=== PATIENT | female | born 1950 | race Caucasian/White ===

== ENCOUNTER 2020-01-29 07:40 | Outpatient (REF) | payer MEDICARE, SELFPAY | END 2020-01-29 07:41 | disposition home or self-care (01) | LOC: HO.WFDLDS 07:40 | PROVIDERS: PCP Internal Medicine; Visit Provider Internal Medicine | DX: Z20.828 Contact with and (suspected) exposure to other viral communicable diseases (principal) | CPT/HCPCS: 36415; 87635 ==

== ENCOUNTER 2025-04-19 14:54 | Outpatient (REF) | payer MEDICARE, SELFPAY ==
--- OUTSIDE RECORDS SUMMARY | 2025-04-19 14:58 | XMS_ITS | Encounter Summary ---
Author Organization [facility] Address [address] [facility] [address] [place] [address] Phone Care Team Providers Care Male Model Name Role Phone Sayra Whaley MD Primary Care Provi christ Tami Felipe MD Primary Care Provider [phone]- [phone] Encounter Details Date Type Department Care Team (Late st Contact Info) Description 03/28/2017 Ancillary Orders Virtual Department [address] [place] [address] Sayra Whaley MD [address] [place] [address] [email or web address] Social History Tobacco Use Types Packs/Day Years Used Date Smoking Tobacco: Never Assessed Comments Unknown Sex and Gender Information Value Date Recorded Sex Assigned at Not on file Legal Sex Female 10:03 PM EDT Gender Identity Not on file Sexual Orientation Not on file documented as of this encounter Plan of Treatment Upcoming Encounters Date Type Department Care Team (Late Contact Info) Description 03/01/2025 Procedure Pass [facility], Mammography- [facility] [address] [place] [address] 06/14/2025 1:00 PM EST Office Visit [facility] [address] [place] [address] 3rd Floor, [address] [place] [address] Dedrick Ornelas MD 22 [facility], [address] [address] 11/15/2025 2:45 PM EDT Appointment [facility], [facility]- [facility] [address] [place] [address] Tami Felipe MD [address] [place] [address] [email or web address] documented as of this encounter Results * BI MAMMOGRAM SCREENING WITH TOMOSYNTHESIS WITH CAD (BILATERAL) (05/05/2017 10:17 AM EST) Anatomical Region Laterality Modality Breast Left, Breast Right, Breast Bilateral Bila teral Mammography 05/05/2017 12:4 8 PM EST Impressions 05/05/2017 12:51 PM EST No mammographic change indicative of malignancy. Routine screening is recommended. BI-RADS CATEGORY: 2 - Benign finding. DENSITY: There are scattered fibroglandular densities. POS - [email or web address] Narrative 05/05/2017 12:51 PM EST Bilateral full-field digital screening mammography is obtained and read in conjunction with computer-aided detection. Tomosynthesis as well as 2-D C view imaging of both breasts in two planes also obtained. Comparison made to multiple prior, most recent 03/04/2016, and most remote 08/31/2010. No dominant mass, suspicious microcalcification, architectural distortion, focal skin thickening or worrisome asymmetry is detected. Vascular calcification noted, especially on the left. Small amount also suggested on the right. What may be a few milk of calcium microcysts also suggested on the right. Procedure Note Timothy Dick MD - 05/05/2017 Bilateral full-field digital screening mammography is obtained and read inconjunction with computer-aided detection. Tomosynthesis as well as 2-D Cview imaging of both breasts in two planes also obtained. Comparison madeto multiple prior, most recent 03/04/2016, and most remote 08/31/2010. No dominant mass, suspicious microcalcification, architectural distortion,focal skin thickening or worrisome asymmetry is detected. Vascularcalcification noted, especially on the left. Small amount also suggestedon the right. What may be a few milk of calcium microcysts also suggestedon the right. IMPRESSION: No mammographic change indicative of malignancy. Routine screening isrecommended. BI-RADS CATEGORY: 2 - Benign finding. DENSITY: There are scattered fibroglandular densities. POS - [email or web address] Sayra Whaley MD IMG MG EXAMS Fin al Result documented in this encounter Visit Diagnoses Diagnosis Breast screening Breast screening, unspecified Breast screening Breast screening, unspecified documented in this encounter Care Teams Male Model Relationship Specialty Start Date End Date Sayra Whaley MD [email or web address] PCP - General Internal Medicine 03/28/17 Tami Felipe MD [address] [place] [address] [email or web address] PCP - General Internal Medicine 03/01/22 documented as of this encounter Additional Source Comments The information contained in this document represents components of the legal health record. It is not the complete legal health record.[facility]
--- OUTSIDE RECORDS SUMMARY | 2025-04-19 14:58 | XMS_ITS | Encounter Summary ---
Author Organization [facility] Address [address] [address] Phone Care Team Providers Care Client Project Coordinator Name Role Phone Tami Felipe MD Primary Care Provider [phone]- [phone] Encounter Details Date Type Department Care Team (Late st Contact Info) Description 07/29/2022 Procedure Pass [facility] Admitting Dept Virtual Department [address] [place] [phone] Social History Tobacco Use Types Packs/Day Years Used Date Smoking Tobacco: Never Smokeless Tobacco: Never Alcohol Use Standard Drinks/Week Comments Yes 5 (1 standard drink = 0.6 oz pur e alcohol) Comments No Sex and Gender Information Value Date Recorded Sex Assigned at Not on file Legal Sex Female 10:03 PM EDT Gender Identity Not on file Sexual Orientation Not on file documented as of this encounter Plan of Treatment Upcoming Encounters Date Type Department Care Team (Late st Contact Info) Description 03/01/2025 Procedure Pass [address] [address] 06/14/2025 1:00 PM EST Office Visit [facility] [address] [place] [address] 3rd Floor, [address] [place] [address] Dedrick Ornelas MD [address] [place] [address] 11/15/2025 2:45 PM EDT Appointment [facility] 30 [place] [address] Tami Felipe MD [address] [place] [address] [email or web address] documented as of this encounter Visit Diagnoses Not on filedocumented in this encounter Care Teams Client Project Coordinator Relationship Specialty Start Date End Date Tami Felipe MD [address] [place] [address] [email or web address] PCP - General Internal Medicine 03/01/22 documented as of this encounter Additional Source Comments The information contained in this document represents components of the legal health record. It is not the complete legal health record.[facility]
--- OUTSIDE RECORDS SUMMARY | 2025-04-19 14:58 | XMS_ITS | Encounter Summary ---
Author Organization [facility] Address [address] [facility] [address] [place] [address] Phone Care Team Providers Care Linen Room Houseperson Name Role Phone Tami Felipe MD Primary Care Provider [phone]- [phone] Encounter Details Date Type Department Care Team (Late st Contact Info) Description 03/12/2022 Transcribe Orders Virtual Department [address] [place] [address] Tami Felipe MD [address] [place] [address] [email or web address] (Primary Dx); Discomfort Social History Tobacco Use Types Packs/Day Years Used Date Smoking Tobacco: Never Smokeless Tobacco: Never Alcohol Use Standard Drinks/Week Comments Yes 0 (1 standard drink = 0.6 oz pur e alcohol) Comments No Sex and Gender Information Value Date Recorded Sex Assigned at Not on file Legal Sex Female 10:03 PM EDT Gender Identity Not on file Sexual Orientation Not on file documented as of this encounter Plan of Treatment Upcoming Encounters Date Type Department Care Team (Late Contact Info) Description 03/01/2025 Procedure Pass [facility] [address] [place] [address] 06/14/2025 1:00 PM EST Office Visit [facility] [address] [place] [address] 3rd Floor, [address] [place] [address] Dedrick Ornelas MD 22 [facility], [address] [id number] 11/15/2025 2:45 PM EDT Appointment [facility], [facility] [address] [place] [address] Tami Felipe MD [address] [place] [address] [email or web address] documented as of this encounter Results * US PELVIS TRANSABDOMINAL PLUS TRANSVAGINAL (03/26/2022 1:43 PM EST) Anatomical Region Laterality Modality Pelvis, Uterus/Adnexa Ultrasound 03/29/2022 1:43 PM EST Impressions 03/29/2022 1:47 PM EST 1. Multiple uterine fibroids measuring up to 4.3 cm. 2. 2 cm simple right ovarian cyst. 3. Non-visualization of the left ovary. 4. Two simple left adnexal cysts. Narrative 03/29/2022 1:47 PM EST US PELVIS TRANSABDOMINAL PLUS TRANSVAGINAL TECHNIQUE: Pelvic Ultrasound Transabdominal performed for global imaging of the pelvis. Pelvic Ultrasound Transvaginal performed for detailed imaging of the endometrium and/or adnexa. COMPARISON: None FINDINGS: Uterus: Size: 7.4 x 3 x 3.5 cm. Myometrium: Heterogeneous with multiple fibroids, some of which are calcified, the largest measuring 4.3 cm Endometrium: Normal. Thickness: 2 mm. Right adnexa: Ovary: Measures 2.8 x 3 x 2.5 cm There is a 2 x 1.5 x 2 cm simple cyst Left adnexa: Ovary: Not well visualized. There are two adnexal simple cysts, one measuring 1.6 x 1.2 x 1.4 cm and one measuring 1.2 x 0.8 x 0.9 cm Free fluid: No significant free fluid. Procedure Note Chiqui Rivera MD - 03/29/2022 US PELVIS TRANSABDOMINAL PLUS TRANSVAGINAL TECHNIQUE: Pelvic Ultrasound Transabdominal performed for global imagingof the pelvis. Pelvic Ultrasound Transvaginal performed for detailedimaging of the endometrium and/or adnexa. COMPARISON: None FINDINGS: Uterus: Size: 7.4 x 3 x 3.5 cm. Myometrium: Heterogeneous with multiple fibroids, some of which arecalcified, the largest measuring 4.3 cm Endometrium: Normal. Thickness: 2 mm. Right adnexa: Ovary: Measures 2.8 x 3 x 2.5 cm There is a 2 x 1.5 x 2 cm simple cyst Left adnexa: Ovary: Not well visualized. There are two adnexal simple cysts, one measuring 1.6 x 1.2 x 1.4 cm andone measuring 1.2 x 0.8 x 0.9 cm Free fluid: No significant free fluid. IMPRESSION: 1. Multiple uterine fibroids measuring up to 4.3 cm. 2. 2 cm simple right ovarian cyst. 3. Non-visualization of the left ovary. 4. Two simple left adnexal cysts. us Tami Felipe MD IM US PELVIS Final Resul t documented in this encounter Visit Diagnoses Diagnosis Bloating- Primary Flatulence, eructation, and gas pain Discomfort Bloating Flatulence, eructation, and gas pain Discomfort documented in this encounter Care Teams Linen Room Houseperson Relationship Specialty Start Date End Date Tami Felipe MD [address] [place] [address] PCP - General Internal Medicine 03/01/22 documented as of this encounter Additional Source Comments The information contained in this document represents components of the legal health record. It is not the complete legal health record.[facility]
--- OUTSIDE RECORDS SUMMARY | 2025-04-19 14:58 | XMS_ITS | Encounter Summary ---
Author Organization [facility] Address [address] [facility] [address] [place] [address] Phone Care Team Providers Care Tassel Clipper Name Role Phone Sayra Whaley MD Primary Care Provi christ Tami Felipe MD Primary Care Provider [phone]- [phone] Encounter Details Date Type Department Care Team (Late st Contact Info) Description 04/07/2017 Transcribe Orders [address] [address] Sayra Whaley MD [address] [place], [place] [phone] [email or web address] Osteopedion (Primary Dx) Social History Tobacco Use Types Packs/Day Years [...] st Contact Info) Description 03/01/2025 Procedure Pass [facility] 30 [place] [address] 06/14/2025 1:00 PM EST Office Visit [facility] [address] [place] [address] 3rd Floor, [address] [place] [address] Dedrick Ornelas MD 22 [facility] [address] [place] [address] 11/15/2025 2:45 PM EDT Appointment [facility], [address] [address] Tami Felipe MD [address] [place] [phone] [email or web address] documented as of this encounter Procedures Procedure Name Priority Date/Time Associated Diagnosis Comments URINALYSIS WITH SEDIMENT Routine 04/07/2017 7:44 AM EST Osteopedion COMPREHENSIVE METABOLIC PANEL (CMP) Routine 04/07/2017 7:44 AM EST Osteopedion 25-OH VITAMIN D Routine 04/07/2017 7:44 AM EST Osteopedion HEMOGLOBIN A1C Routine 04/07/2017 7:44 AM EST Osteopedion LIPID PANEL Routine 04/07/2017 7:44 AM EST Osteopedion documented in this encounter Results * (ABNORMAL) 25-OH vitamin D (04/07/2017 7:44 AM EST) 25 OH VIT D (TOTAL) 28(L) 30 - 1,000 ng/mL [facility] Blood 04/07/2017 7:44 AM EST 04/07/2017 7:52 AM EST us Sayra Whaley MD LAB BLOOD BKR ORDER BETI Final Result [address] [address] * (ABNORMAL) Urinalysis with sediment (04/07/2017 7:44 AM EST) WBC 0-4(A) NONE SEEN /hpf [facility] RBC 0-2(A) NONE SEEN /hpf [facility] URINE EPITHELIAL 0-4(A) NONE SEEN [facility] MUCUS Trace(A) NONE SEEN /hpf [facility] BACTERIA NONE SEEN NONE SEEN [facility] COLOR STRAW(A) Yellow [facility] CLARITY Clear [facility] GLUCOSE Negative Negative [facility] BILI Negative Negative [facility] KETONES Negative Negative [facility] SPECIFIC GRAVITY <1.005 1.005 - 1.030 [facility] BLOOD Negative Negative [facility] PH 6.0 5.0 - 8.0 [facility] Protein-UA Negative Negative [facility] NITRITE Negative Negative [facility] Leukocyte esterase, ur Trace(A) Negative [facility] Urine (Urine) 04/07/2017 7:4 4 AM EST 04/07/2017 7:51 AM EST Sayra Whaley MD LAB URINE ORDERABLE S Final Result Performing Organization Address [facility]/ZIP Co de Phone Number [address] [address] * Hemoglobin A1c (04/07/2017 7:44 AM EST) HEMOGLOBIN A1C 5.4 4.3 - 5.8 % [facility] Blood 04/07/2017 7:44 AM EST 04/07/2017 7:52 AM EST us Sayra Whaley MD LAB BLOOD BKR ORDER BETI Final Result Performing Organization Address City/[facility]/ZIP Co de Phone Number [address] [address] * (ABNORMAL) Comprehensive metabolic panel (04/07/2017 7:44 AM EST) SODIUM 140 133 - 146 mmol/L [facility] POTASSIUM 4.5 3.3 - 5.1 mmol/L [facility] CHLORIDE 99 96 - 108 mmol/L [facility] CO2 30 21 - 35 mmol/L [facility] BUN 20(H) 6 - 19 mg/dL [facility] CREATININE 0.60 0.5 - 1.5 mg/dL [facility] GLUCOSE 113(H) 70 - 99 mg/dL [facility] ALBUMIN 4.4 3.9 - 4.8 g/dL [facility] TOTAL PROTEIN 7.1 6.5 - 8.0 g/dL [facility] CALCIUM 9.5 8.4 - 10.3 mg/dL [facility] ALKALINE PHOSPHATASE 76 39 - 117 U/L [facility] TOTAL BILIRUBIN 0.7 0 - 1.2 mg/dL [facility] AST 21 0 - 37 U/L [facility] ALT 20 0 - 40 U/L [facility] GLOBULIN 2.7 1 - 4.8 g/dL [facility] EGFR >60 >60 mL/min/1.7 3m2 [facility] Comment:Abnormal if <60. If patient is -Peruvian, multiply the result by 1.21. ANION GAP 16 10 - 20 mmol/L [facility] Blood 04/07/2017 7:44 AM EST 04/07/2017 7:52 AM EST us Sayra Whaley MD LAB BLOOD BKR ORDER BETI Final Result [facility] [address] [place], [place] [id number] * (ABNORMAL) Lipid panel (04/07/2017 7:44 AM EST) HDL 63 mg/dL [facility] Comment: Interpretation: Risk Level Females Decreased >55mg/dL Average 50-55 mg/dL Increased <50 mg/dL CHOLESTEROL 247(H) 0 - 240 mg/dL [facility] TRIGLYCERIDES 126 30 - 160 mg/dL [facility] LDL 159(H) 50 - 129 mg/dL [facility] Comment: LDL levels in terms of risk for coronary heart disease: <100 mg/dL: Optimal 100-129 mg/dL: Near or above optimal 130-159 mg/dL: Borderline high 160-189 mg/dL: High >190 mg/dL: Very High CARDIAC RISK RATIO 3.9 3.3 - 4.4 C [facility] Blood 04/07/2017 7:44 AM EST 04/07/2017 7:52 AM EST us Sayra Whaley MD LAB BLOOD BKR ORDER BETI Final Result [address] [address] documented in this encounter Visit Diagnoses Diagnosis Osteopedion- Primary Unspecified condition originating in the period documented in this encounter Care Teams Tassel Clipper Relationship Specialty Start Date End Date Sayra Whaley MD [email or web address] PCP - General Internal Medicine 03/28/17 Tami Felipe MD [address] [place] [address] [email or web address] PCP - General Internal Medicine 03/01/22 documented as of this encounter Additional Source Comments The information contained in this document represents components of the legal health record. It is not the complete legal health record.[facility]
--- OUTSIDE RECORDS SUMMARY | 2025-04-19 14:58 | XMS_ITS | Clinical Summary ---
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 Active pravastatin (PRAVACHOL) 80 MG tablet Take 80 mg by mouth daily. Active ezetimibe (ZETIA) 10 mg tablet Take 10 mg by mouth daily. 04/29/2022 Active multivitamin-min erals-lutein (CENTRUM SILVER) Tab Take 1 tablet by mouth daily. Active turmeric/turmeri c ext/pepr ext (TURMERIC-TURMER IC EXT-PEPPER) 500-3 mg Cap Take by mouth. Active magnesium oxide 400 mg magnesium Cap Take by mouth. Active cholecalciferol (VITAMIN D3) 2,000 unit tablet Take 2,000 Units by mouth daily. Active aspirin 81 MG EC tablet Take 81 mg by mouth daily. Active metoprolol succinate (TOPROL-XL) 25 MG 24 hr tablet TAKE ONE TABLET BY MOUTH EVERY DAY 90 tablet 3 08/09/2024 Active Encounters Date Type Department Care Team Description 03/01/2025 Transcribe Orders Virtual Department [address] [place] [address] Mayda Felipe MD Breast screening (Primary Dx) 02/28/2025 Transcribe Orders Virtual Department [address] [place] [address] Mayda Felipe MD Breast screening (Primary Dx) from Last 3 Months Family History Medical History Relation Comments Breast cancer Neg Hx Social History Tobacco Use Types Packs/Day Years Used Date Smoking Tobacco: Never Smokeless Tobacco: Never Tobacco Cessation:Counseling Given: Not Answered Alcohol Use Standard Drinks/Week Comments Yes 5 (1 standard drink = 0.6 oz pur e alcohol) Education Answer Date Recorded Are you interested in more education? Not on ansley e 08/20/2022 Are you concerned about learning? Not on file 08/20/2022 No 08/20/2022 No 08/20/2022 Digital Access Answer Date Recorded No 09/20/2022 No 09/20/2022 Reliable internet access at home? Not on file 09/20/2022 Device with a working camera? Not on file Comments No Sex and Gender Information Value Date Recorded Sex Assigned at Not on file Legal Sex Female 10:03 PM EDT Gender Identity Not on file Sexual Orientation Not on file Last Filed Vital Signs Vital Sign Reading Time Taken Comments Blood Pressure 138/72 06/14/2024 1:07 PM EST Pulse 84 06/14/2024 1:07 PM EST Temperature 36.6 C (97.9 F) 07/29/2022 7:21 AM EDT Respiratory Rate 18 07/29/2022 8:29 AM EDT Oxygen Saturation 98% 06/14/2024 1:07 PM EST Inhaled Oxygen Concentration - - Weight 74.4 kg (164 lb) 06/14/2024 1:07 PM EST Height 167.6 cm (5' 6 ) 06/14/2024 1:07 PM EST Body Mass Index 26.47 06/14/2024 1:07 PM EST Plan of Treatment Upcoming Encounters Date Type Department Care Team (Late st Contact Info) Description 03/01/2025 Procedure Pass [facility], Mammography- [facility] [address] [place] [address] 06/14/2025 1:00 PM EST Office Visit [facility] [address] [place] [address] 3rd Floor, [address] [place] [address] Dedrick Ornelas MD [address] [facility], [address] [place], [place] [id number] 11/15/2025 2:45 PM EDT Appointment [facility], [address] [address] Mayda Felipe MD [address] [place] [phone] [email or web address] Health Maintenance Due Date Last Done Comments DEPRESSION SCREENING 1961 HEPATITIS C SCREENING 1967 COLOGUARD 1994 FIT TEST 1994 FOBT 1994 SIGMOIDOSCOPY 1994 VIRTUAL COLONOSCOPY 1994 INFLUENZA VACCINE (#1) 2024 , 02/04/2022, 01/19/2021 COVID-19 VACCINE ( season) 2024 07/30/2023, 01/28/2023, 01/26/2022, Additional history exists CREATININE LEVEL 04/01/2026 04/01/2025, 05/2023, 02/22/2024, Additional history exists LIPID PANEL 04/01/2026 04/01/2025, 05/26, 03/26/2024, Additional history exists POTASSIUM LEVEL 04/01/2026 04/01/2025, 05/2023, 02/22/2024, Additional history exists COLONOSCOPY 07/30/2027 07/29/2022 COLORECTAL CANCER SCREENING 07/30/2027 Adult Td,Tdap Booster 05/09/2029 05/09/2019 PNEUMOCOCCAL VACCINES (50+ years) Completed 04/08/2016, 03/11/2015 ZOSTER VACCINES Completed 04/29/2021, 11/28/2020 RSV VACCINE Completed 03/29/2023 SMOKING STATUS SCREENING (Once After 26 Yrs) Completed 06/14/2024 OSTEOPOROSIS SCREENING INITIAL (ONE-TIME) Completed 08/06/2024, 11/27/2020 HEPATITIS A VACCINES Aged Out No long er eligible based on patient's age to complete this topic HIB VACCINES Aged Out No longer eligi ble based on patient's age to complete this topic MENINGOCOCCAL VACCINES (ACWY) Aged Out No longer eligible based on patient's age to complete this topic MENINGOCOCCAL VACCINES (B) Aged Out N o longer eligible based on patient's age to complete this topic Medical Devices Not on file Procedures Procedure Name Priority Date/Time Associated Diagnosis Comments LIPID PANEL Routine 04/01/2025 10:00 AM EST Elevated glucose Osteoporosis, unspecified osteoporosis type, unspecified pathological fracture presence PE (physical exam), annual Hyperlipidemia, unspecified hyperlipidemia type Bone disease COMPREHENSIVE METABOLIC PANEL (CMP) Routine 04/01/2025 10:00 AM EST Elevated glucose Osteoporosis, unspecified osteoporosis type, unspecified pathological fracture presence PE (physical exam), annual Hyperlipidemia, unspecified hyperlipidemia type Bone disease CBC Routine 04/01/2025 10:00 AM EST Elevated glucose Osteoporosis, unspecified osteoporosis type, unspecified pathological fracture presence PE (physical exam), annual Hyperlipidemia, unspecified hyperlipidemia type Bone disease HEMOGLOBIN A1C Routine 04/01/2025 10:00 AM EST Elevated glucose Osteoporosis, unspecified osteoporosis type, unspecified pathological fracture presence PE (physical exam), annual Hyperlipidemia, unspecified hyperlipidemia type Bone disease 25-OH VITAMIN D Routine 04/01/2025 10:00 AM EST Elevated glucose Osteoporosis, unspecified osteoporosis type, unspecified pathological fracture presence PE (physical exam), annual Hyperlipidemia, unspecified hyperlipidemia type Bone disease BD DXA AXIAL (SPINE) WITH HIP Routine 08/06/2024 7:49 AM EDT Osteopenia, unspecified location ENDOSCOPY, COLON 07/29/2022 7:57 AM EDT from Last 3 Months or Most Recently Relevant to Health Maintenance Results * (ABNORMAL) Comprehensive Metabolic Panel (CMP) (04/01/2025 10:00 AM EST) Sodium 136 136 - 145 mmol/L 04/01/2025 5:07 PM [facility] Potassium 3.9 3.4 - 5.1 mmol/L 04/01/2025 5:07 PM [facility] Chloride 98 98 - 107 mmol/L 04/01/2025 5:07 PM [facility] CO2 28 20 - 31 mmol/L 04/01/2025 5:07 PM [facility] BUN 16 6 - 23 mg/dL 04/01/2025 5:07 PM [facility] Creatinine 0.50 0.50 - 1.00 mg/dL 04/01/2025 5:07 PM [facility] Glucose 118(H) 70 - 99 mg/dL 04/01/2025 5:07 PM [facility] Calcium 9.6 8.5 - 10.5 mg/dL 04/01/2025 5:07 PM [facility] AST 23 <33 U/L 04/01/2025 5:07 PM [facility] ALT 20 <34 U/L 04/01/2025 5:07 PM [facility] Alkaline Phosphatase 80 40 - 130 U/L 04/01/2025 5:07 PM [facility] Bilirubin, Total 0.9 0.0 - 1.2 mg/dL 04/01/2025 5:07 PM [facility] Total Protein 7.1 6.4 - 8.3 g/dL 04/01/2025 5:07 PM [facility] Albumin 4.8 3.5 - 5.2 g/dL 04/01/2025 5:07 PM [facility] Globulin 2.3 1.9 - 4.1 g/dL 04/01/2025 5:07 PM [facility] eGFR 98 >59 mL/min/1.7 3m2 04/01/2025 5:07 PM [facility] Comment:Estimated glomerular filtration rate calculated using the CKD-EPI refit equation. Anion Gap 10 3 - 17 mmol/L 04/01/2025 5:07 PM [facility] Blood (Blood) Venipuncture / Unknown 04/01/2025 10:00 AM EST 04/01/2025 10:00 AM EST us Mayda Felipe MD LAB BLOOD BKR ORDERABLES Fi nal Result [address] [address] * 25-OH Vitamin D (04/01/2025 10:00 AM EST) 25-OH Vitamin D, Total 46 20 - 50 ng/mL 04/01/2025 4:46 PM [facility] Comment: Severe deficiency: <10 ng/mL Mild to moderate deficiency: 10-19 ng/mL Optimum levels: 20-50 ng/mL Increased risk of hypercalciuria: 51-80 ng/mL Possible toxicity: >80 ng/mL Blood (Blood) Venipuncture / Unknown 04/01/2025 10:00 AM EST 04/01/2025 10:00 AM EST us Mayda Felipe MD LAB BLOOD BKR ORDERABLES Fi nal Result [address] [address] * CBC (04/01/2025 10:00 AM EST) WBC 5.17 4.00 - 11.00 K/uL 04/01/2025 5:03 PM [facility] RBC 4.76 4.00 - 5.20 M/uL 04/01/2025 5:03 PM [facility] Hemoglobin 14.5 12.0 - 16.0 g/dL 04/01/2025 5:03 PM [facility] Hematocrit 43.6 36.0 - 46.0 % 04/01/2025 5:03 PM [facility] MCV 91.6 80.0 - 100.0 fL 04/01/2025 5:03 PM [facility] MCH 30.5 27.0 - 31.0 pg 04/01/2025 5:03 PM [facility] MCHC 33.3 32.0 - 36.0 g/dL 04/01/2025 5:03 PM [facility] PLT 194 150 - 450 K/uL 04/01/2025 5:03 PM [facility] MPV 11.8 8.4 - 12.0 fL 04/01/2025 5:03 PM [facility] RDW-CV 12.0 11.5 - 14.5 % 04/01/2025 5:03 PM [facility] Absolute NRBC 0.00 <=0.00 K cells/uL 04/01/2025 5:03 PM [facility] NRBC 0.0 <=0.0 /100 WBCs 04/01/2025 5:03 PM [facility] Blood (Blood) Venipuncture / Unknown 04/01/2025 10:00 AM EST 04/01/2025 10:00 AM EST Mayda Felipe MD LAB BLOOD BKR ORDERABLES Fi nal Result Performing Organization Address [facility] Co de Phone Number [address] [address] * (ABNORMAL) Hemoglobin A1c (04/01/2025 10:00 AM EST) Hemoglobin A1c 5.9(H) 4.3 - 5.6 % 04/01/2025 6:49 PM [facility] Calculated Mean Blood Glucose 123 mg/dL 04/01/2025 6:49 PM [facility] Comment:There is no establis hed normal range for the Estimated Average Glucose (EAG). However, a HbA1c of 5.6% (upper limit of normal) represents an EAG of 114 mg/dL. The diagnostic HbA1c level for diabetes is greater than or equal to 6.5%, which represents an EAG greater than or equal to 140 mg/dL. Blood (Blood) Venipuncture / Unknown 04/01/2025 10:00 AM EST 04/01/2025 10:00 AM EST Mayda Felipe MD LAB BLOOD BKR ORDERABLES Fi nal Result Performing Organization Address [facility] Co de Phone Number [address] [address] * Lipid Panel (04/01/2025 10:00 AM EST) Cholesterol 154 <200 mg/dL 04/01/2025 5:07 PM [facility] HDL 53 >=40 mg/dL 04/01/2025 5:07 PM [facility] Calculated LDL 81 <130 mg/dL 04/01/2025 5:07 PM [facility] Comment:LDL is calculated us ing the Mcghee-NIH equation (HITESH Cardiol. 2019August 23;5(5):540-548). Non-HDL Cholesterol 101 mg/dL 04/01/2025 5:07 PM [facility] Comment:Guidelines suggest a non-HDL cholesterol goal 30 mg/dL higher than the patient-specific LDL cholesterol goal. Cardiac Risk Ratio 2.9 0.0 - 5.0 2024 5:07 PM [facility] Triglycerides 108 <=150 mg/dL 04/01/2025 5:07 PM [facility] Blood (Blood) Venipuncture / Unknown 04/01/2025 10:00 AM EST 04/01/2025 10:00 AM EST us Mayda Felipe MD LAB BLOOD BKR ORDERABLES Fi nal Result [facility] [address] [place] [address] * BD DXA AXIAL (SPINE) WITH HIP (08/06/2024 7:49 AM EDT) Anatomical Region Laterality Modality Bone Density Bone Density 08/06/2024 7:42 AM EDT Impressions 08/07/2024 8:45 AM EDT Interpretation: Osteopenia. Narrative 08/07/2024 8:45 AM EDT Referred By: MAYDA FELIPE Indications: Osteopenia Scanner: Love[employer] A with serial# of [id number] located at [facility] Bone Density Scan (DXA) 08/06/24 Details of prior DXA scans are available by clicking View Full Report BMD T- Z- Skeletal Site gm/cm2 score score BMD Change Since Prior Scan ------ ----- ----- PA Spine (L1-L4) 0.969 -0.70 1.70 0.026 (2.8%)* since 11/27/2020 Total Hip (Left) 0.668 -2.20 -0.50 -0.003 (stable) since 11/27/2020 Femoral Neck (Left) 0.599 -2.30 -0.20 0.014 (stable) since 11/27/2020 ------ ----- ----- * Denotes significant change when >= 0.022 g/cm2 for the spine, 0.027 g/cm2 for the total hip, 0.029 g/cm2 for the femoral neck. Interpretation: Osteopenia. Technical Quality: Imaging of all sites was of adequate quality. FRAX: Based on FRAX(r) 3.6 ([place] White female), this patient's likelihood of hip fracture is 4% and major osteoporotic fracture is 14.3% over the next 10 years. The patient reported no risks of fracture. Reviewed By: Les Wilcox MD on 08/07/2024 08:45:55 Additional Information: -World Health Organization criteria classify adults based on lowest T-score at PA spine, hip or forearm: Normal (T-score >= -1.0), Osteopenia (T-score between -1 and -2.5), or Osteoporosis (T-score <= -2.5). At [facility], T-scores are compared to peak bone density of a young white gender matched reference population. - For premenopausal women and men under the age of 50, Z-scores (comparison to age, gender, and ethnicity matched reference population) are used: Above expected range for age (Z-score >= 2.0), Within expected range of age (Z-score 1.9 to -1.9), or Below expected range for age (Z-score <= -2.0). - The Bone Health and Osteoporosis Foundation recommends that treatment be considered in men aged more than 50 years and in postmenopausal women with ANY of the following: Prior hip or vertebral fractures; T-score of <= -2.5 at the PA spine or hip; or 10 year fracture probability by FRAX of >= 3% for the hip or >= 20% for major osteoporotic fracture. - The FRAX algorithm (https://www.roland.ac.uk/FRAX/tool.aspx) is designed to predict 10-year fracture risk in treatment-naive adults between the ages of 40 and 90. It is not intended to be used in those receiving pharmacologic osteoporosis treatment. - The TBS is derived from the texture of the DXA spine image and has been shown to be related to bone microarchitecture and fracture risk. This data provides information independent of BMD value. It adds to fracture risk assessment with a FRAX adjusted for TBS score. If your patient had a TBS and qualified for a FRAX score, the reported FRAX score has been adjusted for TBS. TBS Score Interpretation 1.350 and greater Normal bone microarchitecture 1.200 to 1.350 Partially degraded bone microarchitecture 1.200 and less Degraded bone microarchitecture - Including race/ethnicity in the generation of T- or Z-scores or in the FRAX calculation is complicated, and currently undergoing active review to ensure that we can give patients the best information on their risk of fracture. - Some prior studies may not be compatible with our comparison software. - Click on View Full Report to see subsequent pages with images and prior bone density results. Procedure Note Les Wilcox MD - 08/07/2024 Referred By: MAYDA FELIPE Indications: Osteopenia Scanner: [employer] A with serial# of [id number] located at [facility] Bone Density Scan (DXA) 08/06/24 Details of prior DXA scans are available by clicking View Full Report BMD T- Z- Skeletal Site gm/cm2 score score BMD Change Since Prior Scan ------ ----- PA Spine (L1-L4) 0.969 -0.70 1.70 0.026 (2.8%)* since11/27/2020 Total Hip (Left) 0.668 -2.20 -0.50 -0.003 (stable) 11/27/2020 Femoral Neck (Left) 0.599 -2.30 -0.20 0.014 (stable) 11/27/2020 ------ ----- * Denotes significant change when >= 0.022 g/cm2 for the spine, 0.027g/cm2 for the total hip, 0.029 g/cm2 for the femoral neck. Interpretation: Osteopenia. Technical Quality: Imaging of all sites was of adequate quality. FRAX: Based on FRAX(r) 3.6 ([place] White female), this patient's likelihoodof hip fracture is 4% and major osteoporotic fracture is 14.3% over the next10 years. The patient reported no risks of fracture. Reviewed By: Les Wilcox MD on 08/07/2024 08:45:55 Additional Information: -World Health Organization criteria classify adults based on lowestT-score at PA spine, hip or forearm: Normal (T-score >= -1.0), Osteopenia (T-score between -1 and -2.5), or Osteoporosis (T-score <= -2.5). At [facility], T-scores are compared to peak bone density of a young white gender matched reference population. - For premenopausal women and men under the age of 50, Z-scores(comparison to age, gender, and ethnicity matched reference population) are used:Above expected range for age (Z-score >= 2.0), Within expected range of age (Z-score 1.9 to -1.9), or Below expected range for age (Z-score <= -2.0). - The Bone Health and Osteoporosis Foundation recommends that treatment be considered in men aged more than 50 years and in postmenopausal women with ANY of the following: Prior hip or vertebral fractures; T-score of <= -2.5 at the PA spine or hip; or 10 year fracture probability by FRAX of >= 3%for the hip or >= 20% for major osteoporotic fracture. - The FRAX algorithm (https://www.roland.ac.uk/FRAX/tool.aspx) is designed to predict 10-year fracture risk in treatment-naive adultsbetween the ages of 40 and 90. It is not intended to be used in those receiving pharmacologic osteoporosis treatment. - The TBS is derived from the texture of the DXA spine image and has been shown to be related to bone microarchitecture and fracture risk. This data provides information independent of BMD value. It adds to fracture risk assessment with a FRAX adjusted for TBS score. If your patient had a TBSand qualified for a FRAX score, the reported FRAX score has been adjusted for TBS. TBS Score Interpretation 1.350 and greater Normal bone microarchitecture 1.200 to 1.350 Partially degraded bone microarchitecture 1.200 and less Degraded bone microarchitecture - Including race/ethnicity in the generation of T- or Z-scores or in the FRAX calculation is complicated, and currently undergoing active review to ensure that we can give patients the best information on their risk of fracture. - Some prior studies may not be compatible with our comparison software. - Click on View Full Report to see subsequent pages with images andprior bone density results. IMPRESSION: Interpretation: Osteopenia. us Mayda YAP BD BONE DENSITY DEXA Fi nal Result * ENDOSCOPY, COLON (07/29/2022 7:57 AM EDT) Narrative Transcriptions Gabby Zayas MD - 07/29/2022 7:57 AM EDT [facility] Patient Name: Selene Gilmer Attending MD:: GABBY ZAYAS MD, Procedure Date: 07/29/2022 7:57 AM Date of : 1950 Age: 72 Admit Type: Outpatient Gender: Female Room: [place] [address] Referring MD: MAYDA FELIPE MD Exam Type: Colonoscopy Indications: Colon cancer screening [facility]: Colorectal cancer in mother, High risk colon cancer surveillance: Personal history of colonic polyps,Last colonoscopy: August 2016 Medications: Propofol per Anesthesia Procedure: Informed consent was obtained from the patientafter discussion of the indications, limitations, alternatives, benefits, and risks of the procedure. Risks specifically discussed include but are not limited to medication reactions, missed lesions, bleeding, perforation, or the need for emergent surgery. Throughout the procedure, the patient's blood pressure, pulse, end-tidal CO2, and oxygensaturations were monitored continuously. The Colonoscope was introduced through the anus and advanced to the terminal ileum, with identificationof the appendiceal orifice and IC valve. The terminal ileum, ileocecal valve, appendiceal orifice, and rectum were photographed. The colonoscopy was performed with ease. The patient tolerated the procedure well. The quality of the bowelpreparation was excellent. The bowel preparation used wasGoLYTELY via split dose instruction. Complications: No immediate complications. Estimated blood loss:None. Findings: The digital rectal exam was normal. Pertinent negatives include no palpable rectal lesions. Hemorrhoids were found on perianal exam. The retroflexed view of the distal rectum and anal verge was normal and showed no anal or rectal abnormalities. A few small-mouthed diverticula were found in the sigmoid colon. The exam was otherwise without abnormality. The terminal ileum appeared normal. Retroflexion in the right colon was performed. Impression: - Hemorrhoids found on perianal exam. - The distal rectum and anal verge are normal on retroflexion view. - Diverticulosis in the sigmoid colon. - The examination was otherwise normal. - The examined portion of the ileum was normal. - No specimens collected. Recommendation: - Repeat colonoscopy in 5 years for screeningpurposes. GABBY ZAYAS MD 07/29/2022 8:23:49 AM This report has been signed electronically. Number of Addenda: 0 Note Initiated On: 07/29/2022 7:57 AM Procedure Code(s): --- Professional --- 11857, Colonoscopy, flexible; diagnostic, including collection of specimen(s) by brushing or washing, when performed (separateprocedure) --- Technical --- 30183, Colonoscopy, flexible; diagnostic, including collection of specimen(s) by brushing or washing, when performed (separateprocedure) Diagnosis Code(s): --- Professional --- Z80.0, Family history of malignant neoplasm of digestive organs Z86.010, Personal history of colonic polyps K64.9, Unspecified hemorrhoids K57.30, Diverticulosis of large intestine without perforation or abscess without bleeding --- Technical --- Z80.0, Family history of malignant neoplasm of digestive organs Z86.010, Personal history of colonic polyps K64.9, Unspecified hemorrhoids K57.30, Diverticulosis of large intestine without perforation or abscess without bleeding CPT copyright 2021 [employer]. All rights reserved. The codes documented in this report are preliminary and upon sound designer reviewmay be revised to meet current compliance requirements. Procedure Date: 07/29/2022 7:57:[address] [place] [id number] Mayda Felipe MD GI PROCEDURE ORDERABLES Fin al Result from Last 3 Months or Most Recently Relevant to Health Maintenance Insurance [employer] PPO REPLACEMENT [employer] PPO REPLACEMENT [employer] PPO REPLACEMENT [employer] PPO REPLACEMENT [employer] PPO REPLACEMENT [employer] PPO REPLACEMENT [employer] PPO REPLACEMENT [employer] PPO REPLACEMENT [employer] PPO REPLACEMENT Care Teams Core Java Software Engineer Relationship Specialty Start Date End Date Mayda Felipe MD [address] [place] [phone] [email or web address] PCP - General Internal Medicine 03/01/22 Additional Source Comments The information contained in this document represents components of the legal health record. It is not the complete legal health record.[facility]
--- OUTSIDE RECORDS SUMMARY | 2025-04-19 14:58 | XMS_ITS | Encounter Summary ---
Author Organization [facility] Address [address] [place] [address] [address] [place] [address] Phone Care Team Providers Care Rv Servicer Name Role Phone Sayra Whaley MD Primary Care Provi christ Tami Felipe MD Primary Care Provider +1- [phone] Encounter Details Date Type Department Care Team (Late Contact Info) Description 09/26/2017 Transcribe Orders [address] [address] Sayra Whaley MD 736 [place], [place] [id number] [email or web address] Hyperlipidemia, unspecified hyperlipidemia type (Primary Dx); Hypovitaminosis D Social History Tobacco Use Types Packs/Day Years [...] (Late Contact Info) Description 03/01/2025 Procedure Pass [facility], [facility] 30 [place] [address] 06/14/2025 1:00 PM EST Office Visit [facility] 3[address] Floor, [address] [place] [address] Dedrick Ornelas MD 22 [facility], [address] [place] [address] [email or web address] 11/15/2025 2:45 PM EDT Appointment [address] [address] Tami Felipe MD [address] [place] [address] [email or web address] documented as of this encounter Procedures Procedure Name Priority Date/Time Associated Diagnosis Comments 25-OH VITAMIN D Routine 09/26/2017 7:51 AM EDT Hyperlipidemia, unspecified hyperlipidemia type Hypovitaminosis D ALANINE AMINOTRANSFERASE (ALT) Routine 09/26/2017 7:51 AM EDT Hyperlipidemia, unspecified hyperlipidemia type Hypovitaminosis D ASPARTATE AMINOTRANSFERASE (AST) Routine 09/26/2017 7:51 AM EDT Hyperlipidemia, unspecified hyperlipidemia type Hypovitaminosis D BASIC METABOLIC PANEL (BMP) Routine 09/26/2017 7:51 AM EDT Hyperlipidemia, unspecified hyperlipidemia type Hypovitaminosis D documented in this encounter Results * 25-OH vitamin D (09/26/2017 7:51 AM EDT) 25 OH VIT D (TOTAL) 39 30 - 1,000 ng/mL [facility] Blood 09/26/2017 7:51 AM EDT 09/26/2017 7:53 AM EDT us Sayra Whaley MD LAB BLOOD BKR ORDER BETI Final Result [address] [address] * Aspartate aminotransferase (AST) (09/26/2017 7:51 AM EDT) AST 16 0 - 37 U/L [facility] Blood 09/26/2017 7:51 AM EDT 09/26/2017 7:53 AM EDT us Sayra Whaley MD LAB BLOOD BKR ORDER BETI Final Result Performing Organization Address City/[facility]/ZIP Co de Phone Number [address] [address] * Alanine aminotransferase (ALT) (09/26/2017 7:51 AM EDT) ALT 15 0 - 40 U/L [facility] Blood 09/26/2017 7:51 AM EDT 09/26/2017 7:53 AM EDT us Sayra Whaley MD LAB BLOOD BKR ORDER BETI Final Result Performing Organization Address [facility] de Phone Number [address] [address] * (ABNORMAL) Basic metabolic panel (09/26/2017 7:51 AM EDT) SODIUM 142 133 - 146 mmol/L [facility] CHLORIDE 101 96 - 108 mmol/L [facility] POTASSIUM 4.7 3.3 - 5.1 mmol/L [facility] CO2 29 21 - 35 mmol/L [facility] BUN 15 6 - 19 mg/dL [facility] CREATININE 0.70 0.5 - 1.5 mg/dL [facility] GLUCOSE 121(H) 70 - 99 mg/dL [facility] CALCIUM 9.2 8.4 - 10.3 mg/dL [facility] EGFR 89 >59 mL/min/1.7 3m2 [facility] Comment:If patient is black, multiply result by 1.159. The eGFR calculation has changed from the MDRD equation to the CKD-EPI equation as of June 28, 2017. ANION GAP 17 10 - 20 mmol/L [facility] Blood 09/26/2017 7:51 AM EDT 09/26/2017 7:53 AM EDT us Sayra Whaley MD LAB BLOOD BKR ORDER BETI Final Result [address] [address] documented in this encounter Visit Diagnoses Diagnosis Hyperlipidemia, unspecified hyperlipidemia type- Primary Hypovitaminosis D Unspecified vitamin D deficiency documented in this encounter Care Teams Rv Servicer Relationship Specialty Start Date End Date Sayra Whaley MD [email or web address] PCP - General Internal Medicine 03/28/17 Tami Felipe MD [address] [place] [address] [email or web address] PCP - General Internal Medicine 03/01/22 documented as of this encounter Additional Source Comments The information contained in this document represents components of the legal health record. It is not the complete legal health record.[facility]
--- OUTSIDE RECORDS SUMMARY | 2025-04-19 14:58 | XMS_ITS | Encounter Summary ---
Author Organization [facility] Address [address] [place] [address] [place] [address] Phone Care Team Providers Care Instructional Leader Name Role Phone Sayra Whaley MD Primary Care Provi christ Tami Felipe MD Primary Care Provider [phone]- [phone] Encounter Details Date Type Department Care Team (Late st Contact Info) Description 05/10/2019 Ancillary Orders Virtual Department 30 [place] [address] Sayra Whaley MD 736 [place] [address] [email or web address] Breast screening Social History Tobacco Use Types [...] (Late Contact Info) Description 03/01/2025 Procedure Pass [facility], [facility]- [facility] 30 [place] [address] 06/14/2025 1:00 PM EST Office Visit [facility] [address] [place] [address] 3rd Floor, [address] [place] [address] Dedrick Ornelas MD [address] [facility], [address] [place] [address] [email or web address] 11/15/2025 2:45 PM EDT Appointment [facility], [facility]- [address] [address] Tami Felipe MD [address] [place] [address] [email or web address] documented as of this encounter Results * BI MAMMOGRAM SCREENING WITH TOMOSYNTHESIS WITH CAD (BILATERAL) (05/17/2019 11:48 AM EST) Anatomical Region Laterality Modality Breast Left, Breast Right, Breast Bilateral Bila teral Mammography 05/17/2019 12:2 0 PM EST Impressions 05/17/2019 12:23 PM EST No mammographic evidence of malignancy. Recommend routine annual surveillance. BI-RADS CATEGORY: 2 - Benign finding. DENSITY: There are scattered fibroglandular densities. POS - [id number] Narrative 05/17/2019 12:23 PM EST 68-year-old female with no current breast symptoms. Comparison made to previous on 05/12/2018 and as far back as 11/08/2011. Interpretation made in conjunction with computer-aided detection and tomosynthesis. There are scattered areas of fibroglandular density. Stable benign bilateral calcifications. There are no suspicious masses, areas of architectural distortion, or suspicious clusters of microcalcifications. Procedure Note Allie Hall MD - 05/17/2019 68-year-old female with no current breast symptoms. Comparison made toprevious on 05/12/2018 and as far back as 11/08/2011. Interpretation madein conjunction with computer-aided detection and tomosynthesis. There are scattered areas of fibroglandular density. Stable benignbilateral calcifications. There are no suspicious masses, areas of architectural distortion, orsuspicious clusters of microcalcifications. IMPRESSION: No mammographic evidence of malignancy. Recommend routine annualsurveillance. BI-RADS CATEGORY: 2 - Benign finding. DENSITY: There are scattered fibroglandular densities. POS - [id number] Sayra Whaley MD IMG MG EXAMS Fin al Result documented in this encounter Visit Diagnoses Diagnosis Breast screening Breast screening, unspecified Breast screening Breast screening, unspecified documented in this encounter Care Teams Instructional Leader Relationship Specialty Start Date End Date Sayra Whaley MD [email or web address] PCP - General Internal Medicine 03/28/17 Tami Felipe MD [address] [place] [email or web address] PCP - General Internal Medicine 03/01/22 documented as of this encounter Additional Source Comments The information contained in this document represents components of the legal health record. It is not the complete legal health record.[facility]
--- OUTSIDE RECORDS SUMMARY | 2025-04-19 14:58 | XMS_ITS | Encounter Summary ---
Author Organization [facility] Address [address] [place] [address] [place] [address] Phone Care Team Providers Care Ict Project Manager Name Role Phone Sayra Whaley MD Primary Care Provi christ Tami Felipe MD Primary Care Provider [phone]- [phone] Encounter Details Date Type Department Care Team (Late st Contact Info) Description 05/08/2018 Ancillary Orders Virtual Department 30 [place] [address] Sayra Whaley MD 736 [place] [address] [email or web address] Breast screening Social History Tobacco Use Types [...] (Late Contact Info) Description 03/01/2025 Procedure Pass [facility], [facility] 30 [place] [address] 06/14/2025 1:00 PM EST Office Visit [facility] [address] [place] [address] 3rd Floor, [address] [place] [address] Dedrick Ornelas MD 22 [facility], [address] [place] [address] [email or web address] 11/15/2025 2:45 PM EDT Appointment [facility], [address] [address] Tami Felipe MD [address] [place] [address] [email or web address] documented as of this encounter Results * BI MAMMOGRAM SCREENING WITH TOMOSYNTHESIS WITH CAD (BILATERAL) (05/12/2018 10:19 AM EST) Anatomical Region Laterality Modality Breast Left, Breast Right, Breast Bilateral Bila teral Mammography 05/12/2018 2:32 PM EST Impressions 05/12/2018 2:34 PM EST No mammographic evidence of malignancy. RECOMMENDED FOLLOWUP: Routine screening mammography is recommended, as clinically appropriate. The results will be sent to the patient. BI-RADS CATEGORY: 2 - Benign finding. BREAST DENSITY: There are scattered fibroglandular densities. POS - [id number] Narrative 05/12/2018 2:34 PM EST BI MAMMOGRAM SCREENING WITH TOMOSYNTHESIS WITH CAD (BILATERAL) HISTORY: Screening. COMPARISON: Prior studies dating back to 2010, most recently 05/05/2017. TECHNIQUE: Digital breast tomosynthesis was performed in CC and MLO projections. Reconstructed 2-D C-views generated from the tomosynthesis images. Images interpreted in conjunction with R-2 Image Overhead [employer] computer-aided detection (CAD). FINDINGS: BREAST DENSITY: There are scattered fibroglandular densities. There are no suspicious masses, suspicious areas of architectural distortion or suspicious clusters of microcalcifications. Scattered bilateral benign-appearing calcifications are stable. Procedure Note Debra Alex MD - 05/12/2018 BI MAMMOGRAM SCREENING WITH TOMOSYNTHESIS WITH CAD (BILATERAL) HISTORY: Screening. COMPARISON: Prior studies dating back to 2010, most recently 05/05/2017. TECHNIQUE: Digital breast tomosynthesis was performed in CC and MLOprojections. Reconstructed 2-D C-views generated from the tomosynthesisimages. Images interpreted in conjunction with R-2 Image Checkercomputer-aided detection (CAD). FINDINGS: BREAST DENSITY: There are scattered fibroglandular densities. There are no suspicious masses, suspicious areas of architecturaldistortion or suspicious clusters of microcalcifications. Scattered bilateral benign-appearing calcifications are stable. IMPRESSION: No mammographic evidence of malignancy. RECOMMENDED FOLLOWUP: Routine screening mammography is recommended, asclinically appropriate. The results will be sent to the patient. BI-RADS CATEGORY: 2 - Benign finding. BREAST DENSITY: There are scattered fibroglandular densities. POS - CDHMAMA Sayra Whaley MD IMG MG EXAMS Fin al Result documented in this encounter Visit Diagnoses Diagnosis Breast screening Breast screening, unspecified Breast screening Breast screening, unspecified documented in this encounter Care Teams Ict Project Manager Relationship Specialty Start Date End Date Sayra Whaley MD [email or web address] PCP - General Internal Medicine 03/28/17 Tami Felipe MD [address] [place] [phone] [email or web address] PCP - General Internal Medicine 03/01/22 documented as of this encounter Additional Source Comments The information contained in this document represents components of the legal health record. It is not the complete legal health record.[facility]
--- OUTSIDE RECORDS SUMMARY | 2025-04-19 14:58 | XMS_ITS | Encounter Summary ---
Author Organization [facility] Address [address] [facility] [address] [place] [address] Phone Care Team Providers Care Instrumentation And Controls Technician Name Role Phone Tami Felipe MD Primary Care Provider [phone]- [phone] Encounter Details Date Type Department Care Team (Late st Contact Info) Description 06/08/2022 Ancillary Orders [facility], X-Ray - [address] [address] Tami Felipe MD [address] [place] [address] [email or web address] Left hand pain Social History Tobacco Use Types Packs/Day Years [...] st Contact Info) Description 03/01/2025 Procedure Pass [facility], Mammography- [address] [address] 06/14/2025 1:00 PM EST Office Visit [facility] [address] [place] [address] 3rd Floor, [address] [place] [address] Dedrick Ornelas MD 22 [facility], [address] [place], [place] [phone] 11/15/2025 2:45 PM EDT Appointment [address] [address] Tami Felipe MD [address] [place] [phone] [email or web address] documented as of this encounter Results * XR HAND 3 OR MORE VIEWS (LEFT) (06/08/2022 11:01 AM EST) Anatomical Region Laterality Modality Hand Left Computed Radiogr aphy 06/08/2022 4:28 PM EST Impressions 06/08/2022 4:30 PM EST No radiopaque foreign body in the ftcpt-lo-tiew. Narrative 06/08/2022 4:30 PM EST XR HAND 3 OR MORE VIEWS (LEFT) COMPARISON: None. FINDINGS: No radiopaque foreign body in the vbbcs-tt-zyhu. Mild scattered degenerative changes, most advanced at the thumb carpometacarpal and scattered interphalangeal joints. No acute fracture or dislocation. Procedure Note Robert Pizano MD - 06/08/2022 XR HAND 3 OR MORE VIEWS (LEFT) COMPARISON: None. FINDINGS: No radiopaque foreign body in the ttzkh-ny-gvro. Mild scattereddegenerative changes, most advanced at the thumb carpometacarpal andscattered interphalangeal joints. No acute fracture or dislocation. IMPRESSION: No radiopaque foreign body in the eenhr-ef-aryl. Tami Felipe MD IMG XR UPPER EXTREMITY Jaquelin l Result documented in this encounter Visit Diagnoses Diagnosis Left hand pain Pain in soft tissues of limb Left hand pain Pain in soft tissues of limb documented in this encounter Care Teams Instrumentation And Controls Technician Relationship Specialty Start Date End Date Tami Felipe MD [address] [place] [address] [email or web address] PCP - General Internal Medicine 03/01/22 documented as of this encounter Additional Source Comments The information contained in this document represents components of the legal health record. It is not the complete legal health record.[facility]
--- OUTSIDE RECORDS SUMMARY | 2025-04-19 14:59 | XMS_ITS | Encounter Summary ---
Author Organization [facility] Address [address] [facility] [address] [place] [address] Phone Care Team Providers Care Supervisor Doping Name Role Phone Sayra Whaley MD Primary Care Provi christ Tami Felipe MD Primary Care Provider [phone]- [phone] Encounter Details Date Type Department Care Team (Late st Contact Info) Description 11/03/2020 Procedure Pass [address] [address] Social History Tobacco Use Types Packs/Day Years [...] st Contact Info) Description 03/01/2025 Procedure Pass [address] [address] 06/14/2025 1:00 PM EST Office Visit [facility] [address] [place] [address] 3rd Floor, [address] [place] [address] Dedrick Ornelas MD 22 [facility], [address] [address] 11/15/2025 2:45 PM EDT Appointment [facility], [facility] 30 [place] [address] Tami Felipe MD [address] [place] [address] [email or web address] documented as of this encounter Visit Diagnoses Not on filedocumented in this encounter Care Teams Supervisor Doping Relationship Specialty Start Date End Date Sayra Whaley MD [email or web address] PCP - General Internal Medicine 03/28/17 Tami Felipe MD 15 [place] [address] [email or web address] PCP - General Internal Medicine 03/01/22 documented as of this encounter Additional Source Comments The information contained in this document represents components of the legal health record. It is not the complete legal health record.[facility]
--- OUTSIDE RECORDS SUMMARY | 2025-04-19 14:59 | XMS_ITS | Encounter Summary ---
Author Organization [facility] Address [address] [address] Phone Care Team Providers Care Oil Field Tester Name Role Phone Mayda Felipe MD Primary Care Provider +1- [phone] Encounter Details Date Type Department Care Team (Late st Contact Info) Description 03/30/2024 Transcribe Orders Virtual Department 30 [place] [address] Mayda Felipe MD [address] [place] [address] [email or web address] Osteopenia, unspecified location (Primary Dx) Social History Tobacco Use Types [...] (Late Contact Info) Description 03/01/2025 Procedure Pass [facility] [address] [address] 06/14/2025 1:00 PM EST Office Visit [facility] [address] [place] [address] 3rd Floor, [address] [place] [address] Dedrick Ornelas MD 22 [facility], [address] [place] [address] 11/15/2025 2:45 PM EDT Appointment [address] [address] Mayda Felipe MD [address] [place] [address] [email or web address] documented as of this encounter Results * BD DXA AXIAL (SPINE) WITH HIP (08/06/2024 7:49 AM EDT) Anatomical Region Laterality Modality Bone Density Bone Density 08/06/2024 7:42 AM EDT Impressions 08/07/2024 8:45 AM EDT Interpretation: Osteopenia. Narrative 08/07/2024 8:45 AM EDT Referred By: MAYDA FELIPE Indications: Osteopenia Scanner: Shhmooze A with serial# of [id number] located at [facility] Bone Density Scan (DXA) 08/06/24 Details of [...] -2.5), or Osteoporosis (T-score <= -2.5). At [facility], T-scores are compared to peak bone density [...] Referred By: MAYDA FELIPE Indications: Osteopenia Scanner: Shhmooze A with serial# of [id number] located at [facility] Bone Density Scan (DXA) 08/06/24 Details of prior DXA scans are available by clicking View Full Report BMD T- Z- Skeletal Site gm/cm2 score score BMD Change Since Prior Scan ------ ----- PA Spine (L1-L4) 0.969 -0.70 1.70 0.026 (2.8%)* since11/27/2020 Total Hip (Left) 0.668 -2.20 -0.50 -0.003 (stable) since11/27/2020 Femoral Neck (Left) 0.599 -2.30 -0.20 0.014 [...] -2.5), or Osteoporosis (T-score <= -2.5). At [facility], T-scores are compared to peak bone density [...] andprior bone density results. IMPRESSION: Interpretation: Osteopenia. Mayda Felipe MD IM BD BONE DENSITY DEXA Fi nal Result documented in this encounter Visit Diagnoses Diagnosis Osteopenia, unspecified location- Primary Osteopenia, unspecified location documented in this encounter Care Teams Oil Field Tester Relationship Specialty Start Date End Date Mayda Felipe MD [address] [place] [address] [email or web address] PCP - General Internal Medicine 03/01/22 documented as of this encounter Additional Source Comments The information contained in this document represents components of the legal health record. It is not the complete legal health record.[facility]
--- OUTSIDE RECORDS SUMMARY | 2025-04-19 14:59 | XMS_ITS | Encounter Summary ---
Author Organization [facility] Address [address] [place] [address] [address] [place] [address] Phone Care Team Providers Care Manager Telemarketing Name Role Phone Sayra Whaley MD Primary Care Provi christ Tami Felipe MD Primary Care Provider [phone]- [phone] Encounter Details Date Type Department Care Team (Late st Contact Info) Description 05/01/2019 Transcribe Orders [address] [address] Sayra Whaley MD [address] [place], [place] [phone] [email or web address] Social History Tobacco Use Types Packs/Day Years [...] st Contact Info) Description 03/01/2025 Procedure Pass [address] [address] 06/14/2025 1:00 PM EST Office Visit [facility] [address] [place] [address] 3rd Floor, [address] [place] [address] Dedrick Ornelas MD 22 [facility], [address] [place] [address] 11/15/2025 2:45 PM EDT Appointment [facility] 30 [place] [address] Tami Felipe MD [address] [place] [address] [email or web address] documented as of this encounter Visit Diagnoses Not on filedocumented in this encounter Care Teams Manager Telemarketing Relationship Specialty Start Date End Date Sayra Whaley MD [email or web address] PCP - General Internal Medicine 03/28/17 Tami Felipe MD [address] [place] [address] [email or web address] PCP - General Internal Medicine 03/01/22 documented as of this encounter Additional Source Comments The information contained in this document represents components of the legal health record. It is not the complete legal health record.[facility]
--- OUTSIDE RECORDS SUMMARY | 2025-04-19 14:59 | XMS_ITS | Encounter Summary ---
Author Organization [facility] Address [address] [address] Phone Care Team Providers Care Dump Operator Name Role Phone Tami Felipe MD Primary Care Provider [phone]- [phone] Encounter Details Date Type Department Care Team (Late Contact Info) Description 03/01/2025 Transcribe Orders Virtual Department [address] [place] [address] Tami Felipe MD [address] [place] [address] [email or web address] Breast screening (Primary Dx) Social History Tobacco Use Types [...] (Late Contact Info) Description 03/01/2025 Procedure Pass [facility], Mammography- [address] [address] 06/14/2025 1:00 PM EST Office Visit [facility] 22 [facility] 3rd Floor, [address] [place] [address] Dedrick Ornelas MD 22 [facility], [address] [place] [address] [email or web address] 11/15/2025 2:45 PM EDT Appointment [facility], Mammography- [address] [address] Tami Felipe MD [address] [place] [address] [email or web address] Scheduled Orders Name Type Priority Associated Diagnoses Orde r Schedule Mammogram Screening (Bilateral) Imaging Routine Breast screening Expected: 03/31/2025, Expires: 03/01/2026 documented as of this encounter Visit Diagnoses Diagnosis Breast screening- Primary Breast screening, unspecified documented in this encounter Care Teams Dump Operator Relationship Specialty Start Date End Date Tami Feilpe MD [address] [place] [address] [email or web address] PCP - General Internal Medicine 03/01/22 documented as of this encounter Additional Source Comments The information contained in this document represents components of the legal health record. It is not the complete legal health record.[facility]
--- OUTSIDE RECORDS SUMMARY | 2025-04-19 14:59 | XMS_ITS | Encounter Summary ---
Author Organization [facility] Address [address] [place] [address] [address] [place] [address] Phone Care Team Providers Care Piece Jobber Name Role Phone Sayra Whaley MD Primary Care Provi christ Tami Felipe MD Primary Care Provider [phone]- [phone] Encounter Details Date Type Department Care Team (Late Contact Info) Description 11/03/2020 Ancillary Orders Virtual Department [address] [place] [address] Sayra Whaley MD [address] [place] [address] [email or web address] Breast screening; Other specified disorders of bone density and structure, unspecified site Social History Tobacco Use Types Packs/Day Years [...] (Late Contact Info) Description 03/01/2025 Procedure Pass [facility], [facility]- [facility] [address] [place] [address] 06/14/2025 1:00 PM EST Office Visit [facility], [address] [place] [address] Dedrick Ornelas MD [address] [facility], [address] [place] [address] 11/15/2025 2:45 PM EDT Appointment [facility], [facility] [address] [place] [address] Tami Felipe MD [address] [place] [address] [email or web address] documented as of this encounter Results * BD DXA AXIAL (SPINE) WITH HIP (11/27/2020 2:27 PM EDT) Anatomical Region Laterality Modality Bone Density Bone Density 11/27/2020 3:10 PM EDT Impressions 11/27/2020 3:12 PM EDT 1.Bilateral total hip osteopenia with minimal decrease in bone density since 2013. 2.Normal lumbar spine bone density with minimal decrease in bone density. Narrative 11/27/2020 3:12 PM EDT COMPARISON: 08/03/2013. BONE DENSITY FINDINGS: History: This is a 70-year-old postmenopausal female. Evaluation of the lumbar spine and hips was performed and felt to be technically adequate. L1-L4 vertebral bodies total bone mineral density was calculated at 0.943 gm/cm2 with a T-score of -0.9 falling within the WHO classification of normal. Z-score of 1.3.6.6% decrease in bone density which is statistically significant. Right femoral neck bone mineral density was calculated at 0.629 gm/cm2 with a T- score of -2 falling within the WHO classification of osteopenia. Z-score of -0.1. Total Right hip bone mineral density was calculated at 0.693 gm/cm2 with a T- score of -2 falling within the WHO classification of osteopenia. Z-score of -0.5. 6.6% decrease in bone density which is statistically significant. Left femoral neck bone mineral density was calculated at 0.585 gm/cm2 with a T- score of -2.4 falling within the WHO classification of osteopenia. Z-score of -0.5. Total Left hip bone mineral density was calculated at 0.671 gm/cm2 with a T- score of -2.2 falling within the WHO classification of osteopenia. Z-score of -0.6. 9.7% decrease in bone density which is statistically significant. Procedure Note Reagan Pérez MD - 11/27/2020 COMPARISON: 08/03/2013. BONE DENSITY FINDINGS: History: This is a 70-year-old postmenopausal female. Evaluation of the lumbar spine and hips was performed and felt to betechnically adequate. L1-L4 vertebral bodies total bone mineral density was calculated at 0.943gm/cm2 with a T-score of -0.9 falling within the WHO classification ofnormal. Z-score of 1.3.6.6% decrease in bone density which isstatistically significant. Right femoral neck bone mineral density was calculated at 0.629 gm/rq3krch a T- score of -2 falling within the WHO classification of osteopenia.Z-score of -0.1. Total Right hip bone mineral density was calculated at 0.693 gm/cm2 with aT- score of -2 falling within the WHO classification of osteopenia.Z-score of -0.5. 6.6% decrease in bone density which is statisticallysignificant. Left femoral neck bone mineral density was calculated at 0.585 gm/cm2 witha T- score of -2.4 falling within the WHO classification of osteopenia.Z-score of -0.5. Total Left hip bone mineral density was calculated at 0.671 gm/cm2 with aT-score of -2.2 falling within the WHO classification of osteopenia.Z-score of -0.6. 9.7% decrease in bone density which is statisticallysignificant. IMPRESSION: 1.Bilateral total hip osteopenia with minimal decrease in bone densitysince 2013. 2.Normal lumbar spine bone density with minimal decrease in bonedensity. Sayra Whaley MD IM BD BONE DENSITY DEXA Final Result * BI MAMMOGRAM SCREENING WITH TOMOSYNTHESIS WITH CAD (BILATERAL) (11/27/2020 2:08 PM EDT) Anatomical Region Laterality Modality Breast Left, Breast Right, Breast Bilateral Bila teral Mammography 11/27/2020 2:36 PM EDT Impressions 11/27/2020 2:39 PM EDT No mammographic evidence of malignancy. Recommend routine annual surveillance. BI-RADS CATEGORY: 2 - Benign finding. DENSITY: There are scattered fibroglandular densities. Narrative 11/27/2020 2:39 PM EDT 70-year-old female with no current breast symptoms. Comparison made to previous on 05/17/2019 and as far back as 01/21/2015. Interpretation made in conjunction with computer-aided detection and tomosynthesis. There are scattered areas of fibroglandular density. Chronic benign bilateral vascular calcifications. There are no suspicious masses, areas of architectural distortion, or suspicious clusters of microcalcifications. Procedure Note Reagan Pérez MD - 11/27/2020 70-year-old female with no current breast symptoms. Comparison made toprevious on 05/17/2019 and as far back as 01/21/2015. Interpretation madein conjunction with computer-aided detection and tomosynthesis. There are scattered areas of fibroglandular density. Chronic benignbilateral vascular calcifications. There are no suspicious masses, areas of architectural distortion, orsuspicious clusters of microcalcifications. IMPRESSION: No mammographic evidence of malignancy. Recommend routine annualsurveillance. BI-RADS CATEGORY: 2 - Benign finding. DENSITY: There are scattered fibroglandular densities. us Sayra Whaley MD IMG MG EXAMS Fin al Result documented in this encounter Visit Diagnoses Diagnosis Breast screening Breast screening, unspecified Other specified disorders of bone density and structure, unspecified site Other specified disorders of bone density and structure, unspecified site Breast screening Breast screening, unspecified documented in this encounter Care Teams Piece Jobber Relationship Specialty Start Date End Date Sayra Whaley MD [email or web address] PCP - General Internal Medicine 03/28/17 Tami Felipe MD [address] [place] [phone] [email or web address] PCP - General Internal Medicine 03/01/22 documented as of this encounter Additional Source Comments The information contained in this document represents components of the legal health record. It is not the complete legal health record.[facility]
--- OUTSIDE RECORDS SUMMARY | 2025-04-19 14:59 | XMS_ITS | Encounter Summary ---
Author Organization [facility] Address [address] [place] [address] Phone Care Team Providers Care Network Development Coordinator Name Role Phone Tami Felipe MD Primary Care Provider [phone]- [phone] Encounter Details Date Type Department Care Team (Late st Contact Info) Description 12/22/2023 Procedure Pass [facility] [address] [place] [address] Social History Tobacco Use Types Packs/Day Years [...] st Contact Info) Description 03/01/2025 Procedure Pass [facility], [facility] [address] [place] [address] 06/14/2025 1:00 PM EST Office Visit [facility] [address] Floor, [address] [place] [address] Dedrick Ornelas MD [address] [facility] [address], [address] [place] [address] [email or web address] 11/15/2025 2:45 PM EDT Appointment [facility], [address] [address] Tami Felipe MD [address] [place] [phone] [email or web address] documented as of this encounter Visit Diagnoses Not on filedocumented in this encounter Care Teams Network Development Coordinator Relationship Specialty Start Date End Date Tami Felipe MD [address] [place] [phone] [email or web address] PCP - General Internal Medicine 03/01/22 documented as of this encounter Additional Source Comments The information contained in this document represents components of the legal health record. It is not the complete legal health record.[facility]
--- OUTSIDE RECORDS SUMMARY | 2025-04-19 14:59 | XMS_ITS | Encounter Summary ---
Author Organization [facility] Address [address] [place] [address] [place] [address] Phone Care Team Providers Care Pumper Gager Apprentice Name Role Phone Sayra Whaley MD Primary Care Provi christ Tami Felipe MD Primary Care Provider [phone]- [phone] Encounter Details Date Type Department Care Team (Late st Contact Info) Description 08/01/2020 Transcribe Orders [address] [address] Sayra Whaley MD [address] [place], [place] [id number] [email or web address] Hypertension, unspecified type (Primary Dx); Hyperlipidemia, unspecified hyperlipidemia type; Impaired fasting glucose Social History Tobacco Use Types Packs/Day Years [...] (Late Contact Info) Description 03/01/2025 Procedure Pass [facility], [facility] [address] [place] [address] 06/14/2025 1:00 PM EST Office Visit [facility] [address] 3[address], [address] [place] [address] Dedrick Ornelas MD [address] [facility], [address] [place] [address] 11/15/2025 2:45 PM EDT Appointment [facility], [address] [address] Tami Felipe MD [address] [place] [address] [email or web address] documented as of this encounter Results * (ABNORMAL) Hemoglobin A1c (08/01/2020 9:13 AM EDT) HEMOGLOBIN A1C 5.9(H) 4.3 - 5.8 % [facility] Blood 08/01/2020 9:13 AM EDT 08/01/2020 9:16 AM EDT us Sayra Whaley MD LAB BLOOD BKR ORDER BETI Final Result [address] [address] * (ABNORMAL) Lipid panel (08/01/2020 9:13 AM EDT) HDL 57 mg/dL [facility] Comment: Interpretation <40 mg/dL: Low HDL cholesterol (major risk factor for CHD) Greater than or equal to 60 mg/dL: High HDL cholesterol ( negative risk factor for CHD) HDL - cholesterol is affected by a number of factors, e.g. smoking, excerise, hormones, sex and age. CHOLESTEROL 177 0 - 240 mg/dL [facility] TRIGLYCERIDES 119 30 - 160 mg/dL [facility] LDL 96 50 - 129 mg/dL [facility] Comment: LDL levels in terms of risk for coronary heart disease: <100 mg/dL: Optimal 100-129 mg/dL: Near or above optimal 130-159 mg/dL: Borderline high 160-189 mg/dL: High >190 mg/dL: Very High CARDIAC RISK RATIO 3.1(L) 3.3 - 4.4 C [facility] Blood 08/01/2020 9:13 AM EDT 08/01/2020 9:16 AM EDT us Sayra Whaley MD LAB BLOOD BKR ORDER BETI Final Result [address] [address] * (ABNORMAL) Comprehensive metabolic panel (08/01/2020 9:13 AM EDT) SODIUM 139 133 - 146 mmol/L [facility] POTASSIUM 4.3 3.3 - 5.1 mmol/L [facility] CHLORIDE 102 96 - 108 mmol/L [facility] CO2 28 21 - 35 mmol/L [facility] BUN 19 6 - 19 mg/dL [facility] CREATININE 0.50 0.5 - 1.5 mg/dL [facility] GLUCOSE 114(H) 70 - 99 mg/dL [facility] ALBUMIN 4.2 3.9 - 4.8 g/dL [facility] TOTAL PROTEIN 6.7 6.5 - 8.0 g/dL [facility] CALCIUM 9.2 8.4 - 10.3 mg/dL [facility] ALKALINE PHOSPHATASE 77 39 - 117 U/L [facility] TOTAL BILIRUBIN 0.7 0.0 - 1.2 mg/dL [facility] AST 20 0 - 37 U/L [facility] ALT 21 0 - 40 U/L [facility] GLOBULIN 2.5 1 - 4.8 g/dL [facility] EGFR 97 >59 mL/min/1.7 3m2 [facility] Comment:Estimated glomerular filtration rate calculated using the CKD-EPI equation. ANION GAP 13 10 - 20 mmol/L [facility] Blood 08/01/2020 9:13 AM EDT 08/01/2020 9:16 AM EDT us Sayra Whaley MD LAB BLOOD BKR ORDER BETI Final Result [facility] [address] [place] [address] documented in this encounter Visit Diagnoses Diagnosis Hypertension, unspecified type- Primary Hyperlipidemia, unspecified hyperlipidemia type Impaired fasting glucose documented in this encounter Care Teams Pumper Gager Apprentice Relationship Specialty Start Date End Date Sayra Whaley MD [email or web address] PCP - General Internal Medicine 03/28/17 Tami Felipe MD [address] [place] [email or web address] PCP - General Internal Medicine 03/01/22 documented as of this encounter Additional Source Comments The information contained in this document represents components of the legal health record. It is not the complete legal health record.[facility]
--- OUTSIDE RECORDS SUMMARY | 2025-04-19 14:59 | XMS_ITS | Encounter Summary ---
Author Organization [facility] Address [address] [place] [address] Phone Care Team Providers Care Executive Director Of Nursing Name Role Phone Tami Felipe MD Primary Care Provider [phone]- [phone] Encounter Details Date Type Department Care Team (Late Contact Info) Description 02/28/2025 Transcribe Orders Virtual Department [address] [place] [address] Tami Felipe MD [address] [place] [phone] [email or web address] Breast screening (Primary Dx) Social History Tobacco Use Types Packs/Day Years Used Date Smoking Tobacco: Never Assessed Education Answer Date Recorded Are you interested [...] (Late Contact Info) Description 03/01/2025 Procedure Pass [facility], [facility] [address] [place] [address] 06/14/2025 1:00 PM EST Office Visit [facility] [address] [facility] 3rd Floor, [address] [place] [address] Dedrick Ornelas MD [address] [facility], [address] [address] [email or web address] 11/15/2025 2:45 PM EDT Appointment [facility], Mammography- [address] [address] Tami Felipe MD [address] [place] [address] documented as of this encounter Visit Diagnoses Diagnosis Breast screening- Primary Breast screening, unspecified documented in this encounter Care Teams Executive Director Of Nursing Relationship Specialty Start Date End Date Tami Felipe MD [address] [place] [address] PCP - General Internal Medicine 03/01/22 documented as of this encounter Additional Source Comments The information contained in this document represents components of the legal health record. It is not the complete legal health record.[facility]
== END 2025-04-19 14:55 | disposition home or self-care (01) ==
LOC: HO.MAMMO 14:54
PROVIDERS: PCP Internal Medicine; Visit Provider Internal Medicine
DX: Z12.31 Encounter for screening mammogram for malignant neoplasm of breast (principal)
CPT/HCPCS: 77063; 77067

== ENCOUNTER → 2025-04-19 15:15 | Outpatient (BNV) | payer MEDICARE, SELFPAY | PROVIDERS: PCP Internal Medicine; Visit Provider Internal Medicine | DX: Z12.31 Encounter for screening mammogram for malignant neoplasm of breast (principal) | CPT/HCPCS: 77063; 77067 ==